=== PATIENT | female | born 1945 | race Caucasian/White ===

== ENCOUNTER → 2016-08-04 | Outpatient (CLI) | payer MEDICARE, OTHER ==
[~2016-08-04] MED LIST: ANTIVERT PO; ASPIRIN PO; ASPIRIN81 M1 PO; ASPIRIN81 M2; ASPIRIN81 M2 PO; ATENOLOL PO; ATENOLOL50 MG PO; CALCIUM 600 + D1 TA1; CALCIUM 600 +1 EA14 PO; CALCIUM 600 W/V1 TA2 PO; CLINDAMYCIN HC300 MG PO; DIAZEPAM PO; FERROUS SULFATE PO; FLEXERIL10 M1 PO; FLEXERIL10 MG PO; GABAPENTIN600 MG PO; GLUCOPHAGE500 M1 PO; GLUCOTROL PO; GLUCOVANCE 5/501 TA1 PO; GLUCOVANCE PO; GLYBURIDE PO; IBUPROFEN600 MG PO; JANUMET 50-1,1 UDTAB; K-DUR20 ME1 PO; KEFLEX500 M1 PO; KLOR-CON PO; LEVEMIR SUBQ; LISINOPRIL-HCTZ1 T15 PO; LORTAB 5-325 M1 EACH PO; METFORMIN HCL500 M1 PO; METFORMIN PO; MOTION RELIEF25 MG PO; MOTRIN400 MG PO; MULTI-VITAMIN1 TAB PO; MULTIPLE VITAMI1 T11 PO; NAPROXEN PO; NAPROXEN SODIU220 M1 PO; NEURONTIN PO; NEURONTIN600 MG PO; PERCOCET 5-3251 TAB PO; POSTURE600 MG PO; PRADAXA150 MG PO; PRAVACHOL20 MG PO; PRAVASTATIN SOD20 MG PO; TOPAMAX PO; TOPIRAMATE100 MG PO; TYLENOL #3 PO; VICODIN 5/1 TAB 5/50 PO; VITAMIN B-6 PO; VITAMIN B6200 MG PO; VITAMIN B650 MG PO; VITAMIN C500 M1 PO; VOLTAREN25 MG PO; VOLTAREN75 MG PO; ZESTORETIC 20/11 TAB PO; ZOFRAN ODT4 MG/UDTAB PO
--- NOTE | ~2016-08-04 | BD1 ---
[facility] A Service of [facility] RADIOLOGY TEXT RESULTS PATIENT: ANY PLATA LOCATION: [facility] : 49 UNIT #: [id number] AGE: [address]: Gurmeet Hammond MD SEX: F ORDER DR: [id number] [facility] [address] [place], [place] [address] [id number] O MR#: [id number] Acc #: [id number] NAME: ANY PLATA : 1945 SEX: F STUDY DATE/TIME: 08/04/2016 9:52 UNIT: [facility] ROOM: STUDY DESCRIPTION: BD Dexa Bone Dens 1+ Site Attending Physician: Gurmeet Hammond Jr., M.D. Referring Physician: Gurmeet Hammond Jr., M.D. Ordering Physician: Gurmeet Hammond Jr., M.D. Primary Care Physician: Gurmeet Hammond Jr., M.D. MEDICAL IMAGING REPORT This report is preliminary unless electronic signature is present EXAM DXA scan 08/04/2016 HISTORY Status post menopause with no hormone replacement therapy. Osteopenia. Hysterectomy at age 32. Diabetes. Hypertension with blood pressure medication. Smoking history for 34 years. Fracture of right arm in last 10 years. FINDINGS Bone mineral density in the lumbar spine from L1-L4 was 1.212 g/cm2, which is 1.5 standard deviations above the mean when compared to the young adult reference population, which is within the range of normal. This is 3.6 standard deviations above the mean when compared to the age-matched population. Compared with 04/12/2014, there has been an increase in bone mineral density in the lumbar spine of 4.8%. Bone mineral density in the left femoral neck was 0.669 g/cm2, which is 1.6 standard deviations below the mean when compared to the young adult reference population, which is characteristic of osteopenia. This is 0.1 standard deviation above the mean when compared to the age-matched population. Compared with 04/12/2014, there has been an increase in bone mineral density in the left hip of 1.2%. IMPRESSION Bone mineral density in the lumbar spine within the range of normal and within the left hip characteristic of osteopenia. Compared with 04/12/2014, there has been an increase in bone mineral density in the lumbar spine and the left hip. Dictated by... Archie Cadena M.D. [facility] A Service of [facility] RADIOLOGY TEXT RESULTS PATIENT: ANY PLATA [id number] : [birth year] UNIT #: [id number] AGE: [address]: Gurmeet Hammond MD SEX: F ORDER DR: THIS IS AN ELECTRONICALLY VERIFIED REPORT Archie Cadena M.D. at 08/10/2016 8:07 AM Aury TD: 08/04/2016 11:16 JOB #: [id number] MEDICAL IMAGING REPORT Page 1 of 1 COPY
--- NOTE | ~2016-08-04 | MY11 ---
[facility] A Service [facility] RADIOLOGY TEXT RESULTS PATIENT: ANY PLATA LOCATION: [facility] : 49 UNIT #: [id number] AGE: [address]: Gurmeet Hammond MD SEX: F ORDER DR: [id number] [facility] [address] [place] [address] [place], [place] [address] [id number] O MR#: [id number] Acc #: [id number] NAME: ANY PLATA : 1945 SEX: F STUDY DATE/TIME: 08/04/2016 10:06 UNIT: [facility] ROOM: STUDY DESCRIPTION: MY Mammogram Screening Dig Kaden Attending Physician: Gurmeet Hammond Jr., M.D. Referring Physician: Gurmeet Hammond Jr., M.D. Ordering Physician: Gurmeet Hammond Jr., M.D. Primary Care Physician: Gurmeet Hammond Jr., M.D. MEDICAL IMAGING REPORT This report is preliminary unless electronic signature is present EXAM Digital screening mammogram, 08/04/2016 HISTORY 71-year-old woman positive family history of ovarian cancer in mother. Annual screening. COMPARISON 12/01/2005, 05/14/2008 and 04/10/2014. FINDINGS Digital imaging of each breast was completed utilizing a two-view examination of each breast in craniocaudal and mediolateral-oblique projections. Review and interpretation of digital mammograms include a second review in conjunction with FDA-approved CAD device. There is a normal parenchymal presentation bilaterally consistent with the patient's age. There are no breast masses imaged and no parenchymal asymmetry is visualized. There are no suspicious microcalcifications and I see no focal architectural disturbance. IMPRESSION Negative screening digital mammogram. One-year followup recommended. Patients over the age of 40 are entered into a reminder system with target due date for the next mammogram. A result letter will also be sent to the patient. BIRADS: 1 Negative Dictated by... Bill Lomeli M.D. [facility] A Service of [facility] RADIOLOGY TEXT RESULTS PATIENT: ANY PLATA LOCATION: [facility] : 49 UNIT #: [id number] AGE: [address]: Gurmeet Hammond MD SEX: F ORDER DR: THIS IS AN ELECTRONICALLY VERIFIED REPORT Bill Lomeli M.D. at 08/05/2016 8:07 AM Td TD: 08/04/2016 10:24 JOB #: [id number] MEDICAL IMAGING REPORT Page 1 of 1 COPY
== END | disposition home or self-care (01) ==
LOC: CWCC 09:31
DX: Z12.31 Encounter for screening mammogram for malignant neoplasm of breast (principal); Z13.820 Encounter for screening for osteoporosis; Z78.0 Asymptomatic menopausal state; Z80.41 Family history of malignant neoplasm of ovary
CPT/HCPCS: 77080; G0202